=== PATIENT | female | born 1985 | race Caucasian/White ===

== ENCOUNTER 2023-03-14 15:16 | Outpatient (RCR) | payer OTHER, SELFPAY | END 2023-03-28 14:06 | disposition home or self-care (01) | LOC: PT 15:16 | PROVIDERS: PCP Nurse Practitioner Primary Care; Visit Provider Nurse Practitioner Primary Care | DX: M54.12 Radiculopathy, cervical region (principal) | CPT/HCPCS: 97012; 97110; 97140; 97162 ==

== ENCOUNTER 2023-05-09 17:42 | Emergency (ER) | payer OTHER, SELFPAY ==
[2023-05-09 17:45] VITALS: BP 121/71; PULSE 106; RESP 18; TEMP 37.3; O2SAT 99; BMI 20.8
--- NOTE | 2023-05-09 18:04 | ED_ITS ---
HPI - Seizure General Chief Complaint: Seizure Stated Complaint: seizure Time Seen by Provider: 05/09/23 18:04 Source: patient and family Mode of arrival: ambulance Limitations: no limitations History of Present Illness HPI Narrative: Patient brought in by boyfriend with a complaint of mental status changes. He states the patient Started becoming jaundiced 3 weeks ago. She has been trying to cut down from her alcohol drinking since. She is drinking only one or 2 beers a day now. Friend states he found her today at home with difficulty with speech, confused and not making a lot of sense. He states the patient has not seen etl bi developer ever. Patient does not have any complaints. He states she has not been sick with anything else. She had a cholecystectomy 4 years ago. She has not been vomiting has not had any diarrhea. He thought that maybe she had a seizure was not witnessed but was just because of the way she was acting confused. Related Data Home Medications Medication Instructions Recorded Confirmed No Known Home Medications 05/09/23 05/09/23 Allergies Allergy/AdvReac Type Severity Reaction Status Date / Time No Known Drug Allergies Allergy Verified 05/09/23 17:45 Review of Systems ROS Status of ROS 10 or more systems reviewed and unremarkable except as noted in history and below Exam Narrative Exam Narrative: Nurses notes and vital signs reviewed and patient is not hypoxic. General: nontoxic, and in no apparent distress. Skin: Warm, dry, severe jaundiced, Head: Normocephalic, atraumatic. Neck: Supple, non-tender. Eye: Pupils are equal, round and EOMI. severe scleral icterus. Ears, Nose, Mouth, and Throat: TM clear, no posterior oropharynx erythema or nasal mucosal hypertrophy, uvula is mid-line Oral mucosa is moist Cardiovascular: regular tachycardia without murmur, gallop or rub. Respiratory: No accessory muscle use or respiratory distress. Lungs are clear to auscultation, no wheezing, rales or rhonchi Chest Wall: no tenderness Back: No midline thoracic or lumbar vertebral tenderness. No CVA tenderness Musculoskeletal: normal ROM, no calf or popliteal tenderness, no lower extremity edema/swelling GI: Abdomen is soft, non-distended. ascites, No tenderness to palpation. No rebound, guarding, or rigidity noted. Neurological: A&O x1. No cranial nerve dysfunction observed. No truncal ataxia. Moves all extremities. Psychiatric: Cooperative Constitutional Vital Signs, click to edit/add: Last Vital Signs Temp 99.2 F 05/09/23 17:45 Pulse 106 H 05/09/23 17:45 Resp 18 05/09/23 17:45 BP 121/71 05/09/23 17:45 Pulse Ox 99 05/09/23 17:45 O2 Del Method Room Air 05/09/23 17:45 Course Vital Signs Vital signs: Vital Signs Temperature 99.2 F 05/09/23 17:45 Pulse Rate 106 H 05/09/23 17:45 Respiratory Rate 18 05/09/23 17:45 Blood Pressure 121/71 05/09/23 17:45 Pulse Oximetry 99 05/09/23 17:45 Oxygen Delivery Method Room Air 05/09/23 17:45 Temperature 99.2 F 05/09/23 17:45 Pulse Rate 106 H 05/09/23 17:45 Respiratory Rate 18 05/09/23 17:45 Blood Pressure 121/71 05/09/23 17:45 Pulse Oximetry 99 05/09/23 17:45 Oxygen Delivery Method Room Air 05/09/23 17:45 MDM - Seizure MDM Narrative Medical decision making narrative: Lab studies show potassium of 2.1, bilirubin 21.5. INR greater than 2. The patient had a CT scan which shows a left subdural hematoma. I started the patient on a banana bag, she was given vitamin K and FFP was ordered. [facility]I am awaiting neurosurgeon attending to call us back. Family states there is no history of fall or trauma at this time. The patient is signed out to Dr. Frank awaiting search coordinator at [facility] to call back. Lab Data Attestation: I reviewed the patient's lab results. Labs: Lab Results 05/09/23 Range/Units 18:12 WBC 11.9 H (4.0-11.0) 10^3/uL RBC 2.43 L (4.20-5.40) 10^6/uL Hgb 9.1 L (12.0-16.0) g/dL Hct 25.7 L (36.0-48.0) % MCV 105.8 H (81.0-99.0) fL MCH 37.4 H (26.7-34.0) pg MCHC 35.4 H (29.9-35.2) g/dL RDW 15.6 H (11.0-15.0) % Plt Count 137 L (150-450) 10^3/uL MPV 9.5 (9.5-13.5) fL Neut % (Auto) 67.2 (43.0-75.0) % Lymph % (Auto) 10.8 L (20.5-60.0) % [place] % (Auto) 18.4 H (1.7-12.0) % Eos % (Auto) 2.1 (0.9-7.0) % Baso % (Auto) 1.0 (0.2-2.0) % Neut # (Auto) 8.0 H (1.4-6.5) 10^3/uL Lymph # (Auto) 1.3 (1.2-3.8) 10^3/uL [place] # (Auto) 2.2 H (0.3-0.8) 10^3/uL Eos # (Auto) 0.3 (0.0-0.7) 10^3/uL Baso # (Auto) 0.1 (0.0-0.1) 10^3/uL Abs Immat Gran (auto) 0.06 H (0.00-0.03) 10^3/uL Imm/Tot Granulo (auto) 0.5 (0.0-0.5) % PT 21.7 H (9.0-11.6) sec INR 2.14 Sodium 132 L (136-145) mmol/L Potassium 2.3 L* (3.5-5.1) mmol/L Chloride 97 L (98-107) mmol/L Carbon Dioxide 24.4 (21.0-32.0) mmol/L Anion Gap 12.9 BUN 2.0 L (7.0-18.0) mg/dL Creatinine 0.49 L (0.55-1.02) mg/dL Est GFR ( Amer) >60 (>=60) Est GFR (Non-Af Amer) >60 (>=60) BUN/Creatinine Ratio 4.1 Glucose 89 (74-106) mg/dL Calcium 7.7 L (8.5-10.1) mg/dL Magnesium 2.1 (1.8-2.4) mg/dL Total Bilirubin 21.5 H* (0.2-1.0) mg/dL AST 82 H (15-37) U/L ALT 14 (14-59) U/L Alkaline Phosphatase 182 H (46-116) U/L Ammonia 33 H (11-32) umol/L Total Protein 7.2 (6.4-8.2) g/dL Albumin 2.1 L (3.4-5.0) g/dL Globulin 5.1 g/dL Albumin/Globulin Ratio 0.4 Salicylates <2.8 (<=19.9) mg/dL Acetaminophen <2.0 L (10.0-30.0) ug/mL Ethanol Quant <3 mg/dL Discharge Plan Discharge Patient Disposition: Still a Patient
--- NOTE | 2023-05-09 18:11 | CT_ITS ---
The [address] [address] Patient Name: TOD REYNOLDS MRN: [id number] date: 1985 Sex: F Assigned Patient Location: ER Current Patient Location: ED.MAIN Accession/Order Number: [id number] Exam Date: 05/09/2023 18:42 Report Date: 05/09/2023 19:22 At the request of: ALFREDO BARNES Procedure: CT head/brain wo con EXAM: CT head/brain wo con HISTORY: mental status changes COMPARISON: None. TECHNIQUE noncontrast head CT is performed FINDINGS: Evidence of a left subdural hematoma with acute and chronic blood products. Hemorrhage seen layering along the left frontal, parietal and temporal lobes measuring 1.5 cm in greatest thickness. There is also a small amount of acute blood in the left frontal parafalcine region with some chronic blood products seen adjacent. Chronic subdural fluid also significantly at the level of the vertex Slight effacement of the left frontal horn. Approximately 3 to 4 mm of midline shift. Mass effect on the left temporal lobe and occipital lobe obliterates the posterior horn. No intraventricular hemorrhage. There is also some hemorrhage in noted along the falx. No acute skull fracture is seen. Volume loss; advanced for age. Mastoid air cells and paranasal sinuses are clear. CT/CT head/brain wo con IMPRESSION: Evidence of acute and chronic left subdural hematoma with midline shift to the right of approximately 3 to 4 mm. Effacement of the left temporal horn compatible with mass effect. No intraventricular hemorrhage. Global volume loss; advanced for age. More chronic appearing subdural fluid seen layering along the falx as well as adjacent to the vertex. Clinical findings reported to the physician medical assistant Tessa at the time of dictation. Electronically authenticated by: LEE NG Date: 05/09/2023 19:22
[2023-05-09 18:22] LABS: Basophils Absolute Auto 0.1 10^3/uL (0.0-0.1); Eosinophils Absolute Auto 0.3 10^3/uL (0.0-0.7); Eosinophils Percent Auto 2.1 % (0.9-7.0); Hematocrit 25.7 % (36.0-48.0); Hemoglobin 9.1 g/dL (12.0-16.0); Immature Granulocytes Abs Auto 0.06 10^3/uL (0.00-0.03); Immature Granulocytes Pct Auto 0.5 % (0.0-0.5); Lymphocytes Absolute Auto 1.3 10^3/uL (1.2-3.8); Lymphocytes Percent Auto 10.8 % (20.5-60.0); Mean Corpuscular HGB Conc 35.4 g/dL (29.9-35.2); Mean Corpuscular Hemoglobin 37.4 pg (26.7-34.0); Mean Platelet Volume 9.5 fL (9.5-13.5); Monocytes Absolute Auto 2.2 10^3/uL (0.3-0.8); Monocytes Percent Auto 18.4 % (1.7-12.0); Neutrophils Percent Auto 67.2 % (43.0-75.0); Platelet Count 137 10^3/uL (150-450); Red Blood Count 2.43 10^6/uL (4.20-5.40); Red Cell Distribution Width 15.6 % (11.0-15.0); White Blood Count 11.9 10^3/uL (4.0-11.0)
[2023-05-09 18:24] LABS: Mean Corpuscular Volume 105.8 fL (81.0-99.0)
[2023-05-09 18:31] LABS: Ammonia 33 umol/L (11-32)
[2023-05-09 18:32] LABS: INR 2.14; Prothrombin Time 21.7 sec (9.0-11.6)
[2023-05-09 18:43] LABS: Alanine Aminotransferase 14 U/L (14-59); Albumin Globulin Ratio 0.4; Albumin Level 2.1 g/dL (3.4-5.0); Alkaline Phosphatase 182 U/L (46-116); Anion Gap 12.9; Aspartate Amino Transferase 82 U/L (15-37); BUN Creatinine Ratio 4.1; Calcium 7.7 mg/dL (8.5-10.1); Carbon Dioxide 24.4 mmol/L (21.0-32.0); Chloride 97 mmol/L (98-107); Estimated GFR (African America >60 (>=60); Estimated GFR (Non-African Ame >60 (>=60); Globulin 5.1 g/dL; Glucose 89 mg/dL (74-106); Magnesium 2.1 mg/dL (1.8-2.4); Sodium 132 mmol/L (136-145); Total Protein 7.2 g/dL (6.4-8.2)
[2023-05-09 18:47] LABS: Potassium 2.3 mmol/L (3.5-5.1)
[2023-05-09 18:48] LABS: Bilirubin Total 21.5 mg/dL (0.2-1.0)
[2023-05-09 18:50] LABS: Acetaminophen <2.0 ug/mL (10.0-30.0); Salicylate <2.8 mg/dL (<=19.9)
[2023-05-09 19:03] LABS: Ethanol <3 mg/dL
[2023-05-09] MEDS: LEVETIRACETAM 1,000 MG in 0.9 % SODIUM CHLORIDE 100 ML 440 MG IV (19:45)
--- NOTE | 2023-05-09 19:48 | PC.NURSE ---
1931 Patient seizing full body tonic-clonic seizure. at cart side, Ativan given
[2023-05-09 19:53] VITALS: BP 133/87; PULSE 102; RESP 20; O2SAT 97
[2023-05-09] MEDS: LORAZEPAM 2 MG/ML 1 ML VIAL 1 MG IV (19:59)
[2023-05-09] MEDS: POTASSIUM CHLORIDE IN WATER 10 MEQ/100 ML PIGGYBACK 100 MEQ IV (20:06)
--- NOTE | 2023-05-09 20:20 | PC.NURSE ---
20:12 [facility] here and took over care of patient.
--- NOTE | 2023-05-09 20:29 | PC.NURSE ---
Report called to [facility] at [phone] given to Isabelle in ER
[2023-05-09 20:32] LABS: Glucometer 171 mg/dL (74-106)
== END 2023-05-09 20:32 | disposition short-term general hospital (02) ==
PROVIDERS: Emergency Medicine; Emergency Provider Internal Medicine; PCP Nurse Practitioner Primary Care
DX: I62.00 Nontraumatic subdural hemorrhage, unspecified (principal); G40.409 Other generalized epilepsy and epileptic syndromes, not intractable, without status epilepticus; F10.20 Alcohol dependence, uncomplicated; R17 Unspecified jaundice; R79.1 Abnormal coagulation profile; Z90.49 Acquired absence of other specified parts of digestive tract
CPT/HCPCS: 36415; 70450; 80053; 80179; 80307; 80320; 80329; 82140; 83735; 85025; 85610; 85730; 86850; 86900; 86901; 96374; 96375; 99291; 99292